=== PATIENT | male | born 1995 | race Caucasian/White ===

== ENCOUNTER 2018-02-04 02:53 | Inpatient (IN) | payer MEDICAID ==
[~2018-02-04] VITALS: Ht 162.6 cm; Wt 33.7 kg
[2018-02-04] VITALS (36 sets, daily range): BP systolic 69–123; BP diastolic 45–87
[~2018-02-04 02:53] MED LIST: BACL-141 PO; OXCA300T31 PO
[2018-02-04] MEDS ORDERED: SODIUM CHLORIDE 0.9% 1,000 ML IV ONE ×2 (03:02→05:17)
[2018-02-04] MEDS ORDERED: LORAZEPAM 2MG/ML CPJ ONE ×2 (03:14→13:31)
[2018-02-04] MEDS ORDERED: VANCOMYCIN 1 G PREMIX 200 ML IV ONE (03:15)
[2018-02-04] MEDS ORDERED: SODIUM CHLORIDE 0.9% 1000ML BAG (SEPSIS BOLUS) IV ONE ×2 (03:15→04:45)
[2018-02-04] MEDS ORDERED: LORAZEPAM 2MG/ML CPJ IM ONE (03:15)
[2018-02-04] MEDS ORDERED: ACETAMINOPHEN 650MG SUPP PR ONE (03:15)
[2018-02-04] MEDS ORDERED: CEFTRIAXONE 1 G PREMIX 50 ML IV ONE (03:15)
[2018-02-04] MEDS ORDERED: ALBUTEROL (0.083%) 2.5MG/3ML NEB HHN STA (04:32)
[2018-02-04] MEDS ORDERED: IPRATROPIUM BROMIDE (0.02%) 0.5MG/2.5ML NEB HHN STA (04:32)
[2018-02-04 04:36] LABS: HEMATOCRIT. 38.7 % (42.0-52.0); HEMOGLOBIN. 12.8 g/dL (14.0-18.0); MEAN CORPUSCULAR HEMOGLOBIN 28.1 pg (28.0-32.0); MEAN CORPUSCULAR VOLUME 85.3 fL (80.0-94.0); MEAN PLATELET VOLUME 9.7 fl (7.4-10.4); PLATELET 177 x1000/uL (130-400); RED BLOOD CELL COUNT 4.54 mill/uL (4.7-6.1); RED CELL DISTRIBUTION WIDTH 15.5 % (11.6-14.6)
[2018-02-04 04:44] LABS: INR 1.2; PROTHROMBIN TIME 12.4 sec (9.4-11.6)
[2018-02-04 04:50] LABS: CHLORIDE 114 mEq/L (98-107)
[2018-02-04 04:51] LABS: COLOR URINE AMBER (YELLOW); KETONES URINE NEGATIVE (NEGATIVE); LEUKOCYTE ESTERASE URINE TRACE (NEGATIVE); NITRITE URINE NEGATIVE (NEGATIVE); OCCULT BLOOD URINE NEGATIVE (NEGATIVE); PROTEIN URINE NEGATIVE (NEGATIVE); SPECIFIC GRAVITY URINE 1.027 (1.005-1.030); UROBILINOGEN URINE 0.2 E.U./dL (0.2-1.0)
[2018-02-04 04:54] LABS: AMMONIA 49 uMol/L (<32)
[2018-02-04 04:55] LABS: ETHANOL BLOOD < 10 mg/dL
[2018-02-04 04:57] LABS: CLARITY URINE SL HAZY (CLEAR)
[2018-02-04 04:59] LABS: CREATINE KINASE 409 IU/L (39-308)
[2018-02-04 05:08] LABS: CARBAMAZEPINE < 0.5 ug/mL (4-12); PHENOBARBITAL < 2.1 ug/mL (15.0-40.0); VALPROIC ACID < 3.0 ug/mL (50-100)
[2018-02-04] MEDS ORDERED: POTASSIUM BICARB/CIT ACID 25 MEQ TABLET.EFF PO NR (05:15)
[2018-02-04] MEDS ORDERED: LACTULOSE 20G/30ML UDC PO ONE (05:15)
[2018-02-04 05:17] LABS: *AMPHETAMINES SCREEN URINE NEGATIVE (NEGATIVE); *BARBITURATES SCREEN URINE NEGATIVE (NEGATIVE); *BENZODIAZEPINES SCREEN URINE PRESUMTIVE POSITIVE (NEGATIVE); *COCAINE SCREEN URINE NEGATIVE (NEGATIVE)
[2018-02-04 05:19] LABS: METHADONE URINE SCREEN NEGATIVE (NEGATIVE); OPIATES URINE SCREEN NEGATIVE (NEGATIVE)
[2018-02-04 05:20] LABS: CANNABINOID URINE SCREEN NEGATIVE (NEGATIVE); PHENCYCLIDINE URINE SCREEN NEGATIVE (NEGATIVE)
[2018-02-04 06:07] LABS: PLATELET ESTIMATE NORMAL
[2018-02-04] MEDS ORDERED: DOCUSATE SODIUM 100MG CAPSULE PO PRN (08:15)
[2018-02-04] MEDS ORDERED: NITROGLYCERIN 0.4MG TABLET SL SL PRN (08:15)
[2018-02-04] MEDS ORDERED: MAGNESIUM/ALUMINUM HYDROXIDE/SIMETHICONE 30ML UDC PO PRN (08:15)
[2018-02-04] MEDS ORDERED: HALOPERIDOL LACTATE 5MG/ML VIAL IM PRN (08:15)
[2018-02-04] MEDS ORDERED: GUAIFENESIN 200MG/10ML SUGAR FREE UDC PO PRN (08:15)
[2018-02-04] MEDS ORDERED: KETOROLAC 15MG/ML VIAL IV PRN (08:15)
[2018-02-04] MEDS ORDERED: CLONIDINE 0.1MG TABLET PO PRN (08:15)
[2018-02-04] MEDS ORDERED: LORAZEPAM 2MG/ML CPJ IV PRN (08:15)
[2018-02-04] MEDS ORDERED: IPRATROPIUM/ALBUTEROL 0.5-3(2.5)MG/3ML NEB INH PRN (08:15)
[2018-02-04] MEDS ORDERED: NOREPINEPHRINE 4 MG in DEXT 5% WATER 246 ML IV ONE ×5 (08:30→09:15)
[2018-02-04] MEDS ORDERED: FAMOTIDINE 20MG TABLET PO SCH (09:00)
[2018-02-04] MEDS ORDERED: FUROSEMIDE 40MG/4ML VIAL ONE (12:02)
[2018-02-04] MEDS ORDERED: PROPOFOL 10MG/ML 100ML 100 ML IV PRN (13:00)
[2018-02-04] MEDS ORDERED: IPRATROPIUM/ALBUTEROL 0.5-3(2.5)MG/3ML NEB HHN PRN (13:30)
[2018-02-04] MEDS ORDERED: SUCCINYLCHOLINE CHLORIDE 200MG/10ML VIAL IV ONE (14:57)
[2018-02-04] MEDS ORDERED: ETOMIDATE 2MG/ML 10ML VIAL IV ONE (14:57)
[2018-02-04] MEDS ORDERED: NA PHOS,M-B/NA PHOS,DI-BA ENEMA 118ML PR PRN (15:00)
[2018-02-04] MEDS ORDERED: PANTOPRAZOLE SODIUM 40 MG/VIAL IV SCH (15:00)
[2018-02-04] MEDS ORDERED: ALBUMIN HUMAN 25GM/100ML (25%) IV NR (15:00)
[2018-02-04] MEDS ORDERED: NOREPINEPHRINE 4 MG in DEXT 5% WATER 246 ML IV PRN (15:30)
[2018-02-04] MEDS ORDERED: PHENYLEPHRINE 10 MG in DEXT 5% WATER 249 ML IV PRN ×4 (15:30)
[2018-02-04] MEDS ORDERED: FUROSEMIDE 40MG/4ML VIAL IVP NR (15:30)
[2018-02-04 16:36] LABS: BG BASE EXCESS -0.7 mmol/L (-2.0-2.0); BG CARBOXYHEMOGLOBIN 0.3 % (0.5-1.5); BG DEOXYHEMOGLOBIN 0.8 % (0.0-5.0); BG FRACTION INSPIRED OXYGEN 100; BG HCO3 ACT 23.8 mmol/L (22.0-26.0); BG METHEMOGLOBIN 0.4 % (0.0-1.5); BG OXYGEN SATURATION 99.2 % (92.0-98.5); BG OXYHEMOGLOBIN 98.5 % (94.0-97.0); BG PH 7.403 (7.350-7.450); BG PO2 189.6 mmHg (75.0-100.0); BG SAMPLE SITE RIGHT RADIAL; BG TIDAL VOLUME(mL) 350 mL; BG TOTAL HEMOGLOBIN 15.5 g/dL (12.0-18.0); BG VENT MODE VENT - A/C; BG VENT RATE 14 set
[2018-02-04] MEDS ORDERED: VANCOMYCIN 1250MG in DEXTROSE 5% WATER 250ML IV NR (17:00)
[2018-02-04] MEDS ORDERED: LEVOFLOXACIN 500MG PREMIX 100 ML IV SCH (17:00)
[2018-02-04] MEDS ORDERED: PANTOPRAZOLE SODIUM 40 MG/VIAL IV ONE (17:12)
[2018-02-04] MEDS: PIPERACILLIN/TAZ 3.375G PREMIX 50 ML IV SCH ×2 (17:28→23:25)
[2018-02-04] MEDS: LEVETIRACETAM 500 MG in SODIUM CHLORIDE 0.9% 100 ML IV SCH (17:28)
[2018-02-04] MEDS: ACETAMINOPHEN 325MG TABLET PO PRN (17:50)
[2018-02-04] MEDS: BACLOFEN 20MG TABLET PO SCH (17:50)
[2018-02-04] MEDS: PANTOPRAZOLE 80 MG in SODIUM CHLORIDE 0.9% 100 ML IV SCH (17:52)
[2018-02-04] MEDS: NOREPINEPHRINE 4 MG in DEXT 5% WATER 246 ML IV PRN (18:48)
[2018-02-04 20:22] LABS: CREATINE KINASE MB FRACTION 4.1 ng/mL (0.5-3.6)
[2018-02-04] MEDS: OXCARBAZEPINE 300MG TABLET PO SCH (20:34)
[2018-02-04] MEDS ORDERED: ZOLPIDEM TARTRATE 5MG TABLET PO PRN (21:00)
[2018-02-04] MEDS: IPRATROPIUM/ALBUTEROL 0.5-3(2.5)MG/3ML NEB HHN SCH (21:24)
[2018-02-04] MEDS: VANCOMYCIN 750 MG PREMIX 150 ML IV SCH (23:25)
[2018-02-04] MEDS: KCL 20MEQ/100ML PREMIX 100 ML IV SCH (23:44)
[2018-02-05] VITALS (90 sets, daily range): BP systolic 52–133; BP diastolic 35–80
[2018-02-05] MEDS: IPRATROPIUM/ALBUTEROL 0.5-3(2.5)MG/3ML NEB HHN SCH ×4 (00:30→20:39)
[2018-02-05] MEDS: KCL 20MEQ/100ML PREMIX 100 ML IV SCH (02:06)
[2018-02-05] MEDS: PANTOPRAZOLE 80 MG in SODIUM CHLORIDE 0.9% 100 ML IV SCH ×2 (02:07→12:56)
[2018-02-05] MEDS: DIPHENHYDRAMINE 50MG/ML VIAL IV PRN ×2 (02:46→12:29)
[2018-02-05] MEDS: NOREPINEPHRINE 4 MG in DEXT 5% WATER 246 ML IV PRN ×3 (02:51→22:20)
[2018-02-05] MEDS ORDERED: CEFTRIAXONE 1 G PREMIX 50 ML IV SCH ×2 (03:00→18:00)
[2018-02-05] MEDS: LEVETIRACETAM 500 MG in SODIUM CHLORIDE 0.9% 100 ML IV SCH ×2 (06:06→18:08)
[2018-02-05 06:56] LABS: HEMATOCRIT. 40.3 % (42.0-52.0); HEMOGLOBIN. 13.5 g/dL (14.0-18.0); MEAN CORPUSCULAR VOLUME 83.4 fL (80.0-94.0); MEAN PLATELET VOLUME 9.5 fl (7.4-10.4); PLATELET 170 x1000/uL (130-400); RED BLOOD CELL COUNT 4.84 mill/uL (4.7-6.1); RED CELL DISTRIBUTION WIDTH 15.6 % (11.6-14.6)
[2018-02-05 06:57] LABS: CHLORIDE 106 mEq/L (98-107)
[2018-02-05 07:03] LABS: AMMONIA 25 uMol/L (<32)
[2018-02-05 07:06] LABS: T4 FREE 0.93 ng/dL (0.76-1.46)
[2018-02-05 07:17] LABS: CREATINE KINASE 1318 IU/L (39-308)
[2018-02-05] MEDS: PIPERACILLIN/TAZ 3.375G PREMIX 50 ML IV SCH ×2 (08:05→18:44)
[2018-02-05 08:38] LABS: BG BASE EXCESS 2.4 mmol/L (-2.0-2.0); BG CARBOXYHEMOGLOBIN 0.2 % (0.5-1.5); BG DEOXYHEMOGLOBIN 0.8 % (0.0-5.0); BG FRACTION INSPIRED OXYGEN 60; BG HCO3 ACT 25.6 mmol/L (22.0-26.0); BG METHEMOGLOBIN 0.3 % (0.0-1.5); BG OXYGEN SATURATION 99.2 % (92.0-98.5); BG OXYHEMOGLOBIN 98.7 % (94.0-97.0); BG PCO2 35.1 mmHg (35.0-45.0); BG PO2 202.3 mmHg (75.0-100.0); BG SAMPLE SITE RIGHT RADIAL; BG TIDAL VOLUME(mL) 350 mL; BG TOTAL HEMOGLOBIN 13.8 g/dL (12.0-18.0); BG VENT MODE VENT - A/C; BG VENT RATE 14 set
[2018-02-05] MEDS: VANCOMYCIN 750 MG PREMIX 150 ML IV SCH ×2 (08:40→16:41)
[2018-02-05] MEDS ORDERED: POTASSIUM CHLORIDE 20MEQ/PACKET PO SCH (09:00)
[2018-02-05] MEDS: BACLOFEN 20MG TABLET PO SCH ×2 (09:18→17:49)
[2018-02-05] MEDS: ACETAMINOPHEN 325MG TABLET PO PRN (09:18)
[2018-02-05] MEDS ORDERED: PROPOFOL 10MG/ML 100ML 100 ML IV PRN ×2 (09:48→16:00)
[2018-02-05] MEDS: OXCARBAZEPINE 300MG TABLET PO SCH ×2 (12:29→22:19)
[2018-02-05 12:45] LABS: PLATELET ESTIMATE NORMAL
[2018-02-05 15:32] LABS: HEMATOCRIT 39.8 % (42.0-52.0); HEMOGLOBIN 13.2 g/dL (14.0-18.0)
[2018-02-05] MEDS: LEVOFLOXACIN 500MG PREMIX 100 ML IV SCH (19:30)
[2018-02-06] VITALS (76 sets, daily range): BP systolic 82–125; BP diastolic 45–79
[2018-02-06] MEDS: PANTOPRAZOLE 80 MG in SODIUM CHLORIDE 0.9% 100 ML IV SCH ×3 (00:01→20:28)
[2018-02-06] MEDS: VANCOMYCIN 750 MG PREMIX 150 ML IV SCH (00:01)
[2018-02-06] MEDS: ACETAMINOPHEN 325MG TABLET PO PRN (01:00)
[2018-02-06] MEDS: PIPERACILLIN/TAZ 3.375G PREMIX 50 ML IV SCH ×3 (01:03→18:37)
[2018-02-06] MEDS: IPRATROPIUM/ALBUTEROL 0.5-3(2.5)MG/3ML NEB HHN SCH ×4 (02:20→20:12)
[2018-02-06] MEDS: LEVETIRACETAM 500 MG in SODIUM CHLORIDE 0.9% 100 ML IV SCH ×2 (05:08→17:21)
[2018-02-06 06:03] LABS: CHLORIDE 108 mEq/L (98-107)
[2018-02-06 06:38] LABS: BASOPHILS % 0.1 % (0.0-2.0); EOSINOPHILS % 1.3 % (0.0-5.0); HEMOGLOBIN. 11.5 g/dL (14.0-18.0); LYMPHOCYTES % 9.9 % (20.0-50.0); MEAN CORPUSCULAR HEMOGLOBIN 28.5 pg (28.0-32.0); MEAN CORPUSCULAR VOLUME 83.3 fL (80.0-94.0); MONOCYTES % 4.9 % (2.0-8.0); NEUTROPHILS % 83.8 % (40.0-76.0); PLATELET 146 x1000/uL (130-400); RED BLOOD CELL COUNT 4.04 mill/uL (4.7-6.1); RED CELL DISTRIBUTION WIDTH 15.4 % (11.6-14.6)
[2018-02-06 06:43] LABS: HEMATOCRIT. 33.7 % (42.0-52.0)
[2018-02-06 07:44] LABS: BG BASE EXCESS 1.8 mmol/L (-2.0-2.0); BG CARBOXYHEMOGLOBIN 0.3 % (0.5-1.5); BG DEOXYHEMOGLOBIN 0.8 % (0.0-5.0); BG FRACTION INSPIRED OXYGEN 60; BG HCO3 ACT 25.5 mmol/L (22.0-26.0); BG METHEMOGLOBIN 0.2 % (0.0-1.5); BG OXYGEN SATURATION 99.2 % (92.0-98.5); BG OXYHEMOGLOBIN 98.7 % (94.0-97.0); BG PCO2 36.7 mmHg (35.0-45.0); BG PH 7.459 (7.350-7.450); BG PO2 251.2 mmHg (75.0-100.0); BG SAMPLE SITE RIGHT RADIAL; BG TIDAL VOLUME(mL) 350 mL; BG TOTAL HEMOGLOBIN 12.1 g/dL (12.0-18.0); BG VENT MODE VENT - A/C; BG VENT RATE 14 set
[2018-02-06] MEDS: BACLOFEN 20MG TABLET PO SCH ×2 (09:25→17:21)
[2018-02-06] MEDS: OXCARBAZEPINE 300MG TABLET PO SCH ×2 (09:26→20:29)
[2018-02-06] MEDS: NOREPINEPHRINE 4 MG in DEXT 5% WATER 246 ML IV PRN ×2 (09:35→18:35)
[2018-02-06] MEDS ORDERED: POTASSIUM CHLORIDE 20MEQ/PACKET PO NR (10:00)
[2018-02-06] MEDS ORDERED: MAGNESIUM SULFATE 2 GM in DEXTROSE 5% WATER 50 ML IV NR (11:00)
[2018-02-06] MEDS: LEVOFLOXACIN 500MG PREMIX 100 ML IV SCH (19:04)
[2018-02-06] MEDS: VANCOMYCIN 500 MG PREMIX 100 ML IV SCH (20:29)
[2018-02-07] VITALS (82 sets, daily range): BP systolic 83–107; BP diastolic 35–78
[2018-02-07] MEDS: PIPERACILLIN/TAZ 3.375G PREMIX 50 ML IV SCH ×3 (01:07→17:47)
[2018-02-07] MEDS: IPRATROPIUM/ALBUTEROL 0.5-3(2.5)MG/3ML NEB HHN SCH ×4 (01:40→20:37)
[2018-02-07] MEDS: PANTOPRAZOLE 80 MG in SODIUM CHLORIDE 0.9% 100 ML IV SCH ×3 (04:18→17:46)
[2018-02-07] MEDS: LEVETIRACETAM 500 MG in SODIUM CHLORIDE 0.9% 100 ML IV SCH ×2 (04:18→17:05)
[2018-02-07] MEDS: NOREPINEPHRINE 4 MG in DEXT 5% WATER 246 ML IV PRN ×2 (04:19→22:13)
[2018-02-07 07:23] LABS: BG BASE EXCESS -0.9 mmol/L (-2.0-2.0); BG CARBOXYHEMOGLOBIN 0.3 % (0.5-1.5); BG DEOXYHEMOGLOBIN 0.9 % (0.0-5.0); BG FRACTION INSPIRED OXYGEN 45; BG HCO3 ACT 22.6 mmol/L (22.0-26.0); BG METHEMOGLOBIN 0.1 % (0.0-1.5); BG OXYGEN SATURATION 99.1 % (92.0-98.5); BG OXYHEMOGLOBIN 98.7 % (94.0-97.0); BG PCO2 33.8 mmHg (35.0-45.0); BG PH 7.443 (7.350-7.450); BG PO2 199.2 mmHg (75.0-100.0); BG PRESSURE SUPPORT 12; BG SAMPLE SITE RIGHT RADIAL; BG TIDAL VOLUME(mL) 350 mL; BG TOTAL HEMOGLOBIN 12.1 g/dL (12.0-18.0); BG VENT MODE VENT - SIMV; BG VENT RATE 8 set
[2018-02-07] MEDS: VANCOMYCIN 500 MG PREMIX 100 ML IV SCH ×2 (07:56→19:25)
[2018-02-07] MEDS: BACLOFEN 20MG TABLET PO SCH ×2 (08:02→17:05)
[2018-02-07] MEDS: OXCARBAZEPINE 300MG TABLET PO SCH ×2 (08:03→20:46)
[2018-02-07 11:17] LABS: BASOPHILS % 0.1 % (0.0-2.0); EOSINOPHILS % 1.1 % (0.0-5.0); HEMATOCRIT. 32.5 % (42.0-52.0); HEMOGLOBIN. 10.8 g/dL (14.0-18.0); LYMPHOCYTES % 12.2 % (20.0-50.0); MEAN CORPUSCULAR HEMOGLOBIN 28.1 pg (28.0-32.0); MEAN CORPUSCULAR VOLUME 84.3 fL (80.0-94.0); MEAN PLATELET VOLUME 9.8 fl (7.4-10.4); MONOCYTES % 6.1 % (2.0-8.0); NEUTROPHILS % 80.5 % (40.0-76.0); PLATELET 122 x1000/uL (130-400); RED BLOOD CELL COUNT 3.86 mill/uL (4.7-6.1); RED CELL DISTRIBUTION WIDTH 15.7 % (11.6-14.6)
[2018-02-07 11:24] LABS: CHLORIDE 111 mEq/L (98-107)
[2018-02-07 11:33] LABS: BG CARBOXYHEMOGLOBIN 0.3 % (0.5-1.5); BG CPAP (cmH2O) 0 cm(H2O); BG DEOXYHEMOGLOBIN 1.5 % (0.0-5.0); BG HCO3 ACT 24.6 mmol/L (22.0-26.0); BG METHEMOGLOBIN 0.4 % (0.0-1.5); BG OXYGEN SATURATION 98.5 % (92.0-98.5); BG OXYHEMOGLOBIN 97.8 % (94.0-97.0); BG PCO2 35.7 mmHg (35.0-45.0); BG PH 7.457 (7.350-7.450); BG SAMPLE SITE RIGHT BRACHIAL; BG TOTAL HEMOGLOBIN 11.5 g/dL (12.0-18.0); BG VENT MODE VENT - CPAP
[2018-02-07] MEDS ORDERED: POTASSIUM CHLORIDE 20MEQ/PACKET PO NR (12:30)
[2018-02-07] MEDS ORDERED: KCL 20MEQ/100ML PREMIX 100 ML IV NR (13:00)
[2018-02-07] MEDS: DIPHENHYDRAMINE 50MG/ML VIAL IV PRN (17:04)
[2018-02-07] MEDS: LEVOFLOXACIN 500MG PREMIX 100 ML IV SCH (17:47)
[2018-02-08] VITALS (84 sets, daily range): BP systolic 71–128; BP diastolic 34–80
[2018-02-08] MEDS: IPRATROPIUM/ALBUTEROL 0.5-3(2.5)MG/3ML NEB HHN SCH ×4 (01:58→19:55)
[2018-02-08] MEDS: PANTOPRAZOLE 80 MG in SODIUM CHLORIDE 0.9% 100 ML IV SCH ×3 (02:13→23:44)
[2018-02-08] MEDS: PIPERACILLIN/TAZ 3.375G PREMIX 50 ML IV SCH ×3 (02:13→17:34)
[2018-02-08] MEDS: LEVETIRACETAM 500 MG in SODIUM CHLORIDE 0.9% 100 ML IV SCH ×2 (05:03→17:34)
[2018-02-08 06:10] LABS: EOSINOPHILS % 1.4 % (0.0-5.0); HEMATOCRIT. 31.7 % (42.0-52.0); HEMOGLOBIN. 10.6 g/dL (14.0-18.0); LYMPHOCYTES % 12.1 % (20.0-50.0); MEAN CORPUSCULAR HEMOGLOBIN 28.4 pg (28.0-32.0); MEAN PLATELET VOLUME 10.1 fl (7.4-10.4); MONOCYTES % 8.2 % (2.0-8.0); NEUTROPHILS % 78.3 % (40.0-76.0); PLATELET 133 x1000/uL (130-400); RED BLOOD CELL COUNT 3.73 mill/uL (4.7-6.1); RED CELL DISTRIBUTION WIDTH 16.1 % (11.6-14.6)
[2018-02-08 06:24] LABS: CHLORIDE 109 mEq/L (98-107)
[2018-02-08] MEDS: ONDANSETRON HCL 4MG/2ML VIAL IV PRN (06:29)
[2018-02-08 06:33] LABS: PHOSPHORUS 3.1 mg/dL (2.5-4.9)
[2018-02-08] MEDS: BACLOFEN 20MG TABLET PO SCH ×2 (08:21→17:34)
[2018-02-08] MEDS: OXCARBAZEPINE 300MG TABLET PO SCH ×2 (08:22→20:30)
[2018-02-08] MEDS: VANCOMYCIN 500 MG PREMIX 100 ML IV SCH ×2 (08:22→22:15)
[2018-02-08] MEDS: ENOXAPARIN 30MG/0.3ML SYR SUBCUT SCH (15:21)
[2018-02-08] MEDS: ACETYLCYSTEINE 100MG/ML 10% VIAL 4ML INH SCH (16:10)
[2018-02-08] MEDS: LEVOFLOXACIN 500MG PREMIX 100 ML IV SCH (17:35)
[2018-02-08] MEDS: SIMETHICONE 80MG TABLET CHEW PO PRN (22:54)
[2018-02-09] VITALS (74 sets, daily range): BP systolic 76–144; BP diastolic 35–95
[2018-02-09] MEDS: PIPERACILLIN/TAZ 3.375G PREMIX 50 ML IV SCH ×3 (01:53→17:30)
[2018-02-09] MEDS: IPRATROPIUM/ALBUTEROL 0.5-3(2.5)MG/3ML NEB HHN SCH ×5 (01:54→20:29)
[2018-02-09] MEDS: ACETYLCYSTEINE 100MG/ML 10% VIAL 4ML INH SCH ×3 (02:00→16:09)
[2018-02-09] MEDS: LEVETIRACETAM 500 MG in SODIUM CHLORIDE 0.9% 100 ML IV SCH ×2 (04:10→17:30)
[2018-02-09 05:37] LABS: HEMATOCRIT 29.5 % (42.0-52.0); MEAN CORPUSCULAR HEMOGLOBIN 28.6 pg (28.0-32.0); MEAN CORPUSCULAR VOLUME 84.1 fL (80.0-94.0); PLATELET 102 x1000/uL (130-400); RED BLOOD CELL COUNT 3.51 mill/uL (4.7-6.1); RED CELL DISTRIBUTION WIDTH 15.7 % (11.6-14.6)
[2018-02-09 05:49] LABS: AMMONIA 36 uMol/L (<32)
[2018-02-09 05:55] LABS: CHLORIDE 105 mEq/L (98-107)
[2018-02-09] MEDS: PANTOPRAZOLE 80 MG in SODIUM CHLORIDE 0.9% 100 ML IV SCH (06:25)
[2018-02-09] MEDS: ONDANSETRON HCL 4MG/2ML VIAL IV PRN (06:44)
[2018-02-09] MEDS: VANCOMYCIN 500 MG PREMIX 100 ML IV SCH ×2 (08:02→20:00)
[2018-02-09] MEDS: BACLOFEN 20MG TABLET PO SCH ×2 (08:03→16:21)
[2018-02-09] MEDS: OXCARBAZEPINE 300MG TABLET PO SCH ×2 (08:03→21:01)
[2018-02-09] MEDS: SIMETHICONE 80MG TABLET CHEW PO PRN (08:55)
[2018-02-09] MEDS ORDERED: KCL 20MEQ/100ML PREMIX 100 ML IV NR (10:00)
[2018-02-09] MEDS: ENOXAPARIN 30MG/0.3ML SYR SUBCUT SCH (10:12)
[2018-02-09] MEDS ORDERED: RACEPINEPHRINE 2.25% 0.5ML NEB VIAL HHN PRN (11:00)
[2018-02-09] MEDS ORDERED: PANTOPRAZOLE SODIUM 40 MG/VIAL IV SCH (12:00)
[2018-02-09] MEDS: LEVOFLOXACIN 500MG PREMIX 100 ML IV SCH (17:30)
[2018-02-10] VITALS (41 sets, daily range): BP systolic 72–117; BP diastolic 26–72
[2018-02-10] MEDS: IPRATROPIUM/ALBUTEROL 0.5-3(2.5)MG/3ML NEB HHN SCH ×4 (01:45→20:35)
[2018-02-10] MEDS: ACETYLCYSTEINE 100MG/ML 10% VIAL 4ML INH SCH ×2 (01:45→07:27)
[2018-02-10] MEDS: PIPERACILLIN/TAZ 3.375G PREMIX 50 ML IV SCH ×3 (02:06→17:36)
[2018-02-10] MEDS: LEVETIRACETAM 500 MG in SODIUM CHLORIDE 0.9% 100 ML IV SCH ×2 (04:20→17:33)
[2018-02-10] MEDS: ACETAMINOPHEN 325MG TABLET PO PRN (06:10)
[2018-02-10] MEDS: VANCOMYCIN 500 MG PREMIX 100 ML IV SCH ×2 (08:39→20:01)
[2018-02-10] MEDS: ENOXAPARIN 30MG/0.3ML SYR SUBCUT SCH (09:37)
[2018-02-10] MEDS: OXCARBAZEPINE 300MG TABLET PO SCH (09:37)
[2018-02-10] MEDS: BACLOFEN 20MG TABLET PO SCH ×2 (09:37→17:33)
[2018-02-10] MEDS: PANTOPRAZOLE SODIUM 40 MG/VIAL IV SCH (09:37)
[2018-02-10] MEDS: DIPHENHYDRAMINE 50MG/ML VIAL IV PRN (17:33)
[2018-02-10] MEDS: LEVOFLOXACIN 500MG PREMIX 100 ML IV SCH (17:49)
[2018-02-10] MEDS ORDERED: OXCARBAZEPINE 300MG TABLET PO SCH (21:45)
[2018-02-11] VITALS (13 sets, daily range): BP systolic 88–115; BP diastolic 55–74
[2018-02-11] MEDS: OXCARBAZEPINE 300MG TABLET PO SCH ×3 (01:21→20:45)
[2018-02-11] MEDS: PIPERACILLIN/TAZ 3.375G PREMIX 50 ML IV SCH ×3 (01:59→19:12)
[2018-02-11] MEDS: IPRATROPIUM/ALBUTEROL 0.5-3(2.5)MG/3ML NEB HHN SCH ×4 (02:11→20:30)
[2018-02-11] MEDS: LEVETIRACETAM 500 MG in SODIUM CHLORIDE 0.9% 100 ML IV SCH ×2 (04:54→16:22)
[2018-02-11] MEDS: ACETYLCYSTEINE 100MG/ML 10% VIAL 4ML INH SCH (07:33)
[2018-02-11] MEDS: PANTOPRAZOLE SODIUM 40 MG/VIAL IV SCH (08:11)
[2018-02-11] MEDS: VANCOMYCIN 500 MG PREMIX 100 ML IV SCH ×2 (08:11→20:45)
[2018-02-11] MEDS: ENOXAPARIN 30MG/0.3ML SYR SUBCUT SCH (08:12)
[2018-02-11] MEDS: BACLOFEN 20MG TABLET PO SCH ×2 (09:16→16:22)
[2018-02-11] MEDS: LEVOFLOXACIN 500MG PREMIX 100 ML IV SCH (17:02)
[2018-02-11] MEDS: SIMETHICONE 80MG TABLET CHEW PO PRN (18:30)
[2018-02-12] VITALS (13 sets, daily range): BP systolic 92–131; BP diastolic 40–80
[2018-02-12] MEDS: ACETYLCYSTEINE 100MG/ML 10% VIAL 4ML INH SCH ×3 (01:25→17:11)
[2018-02-12] MEDS: IPRATROPIUM/ALBUTEROL 0.5-3(2.5)MG/3ML NEB HHN SCH ×4 (01:25→21:15)
[2018-02-12] MEDS: LEVETIRACETAM 500 MG in SODIUM CHLORIDE 0.9% 100 ML IV SCH (05:12)
[2018-02-12] MEDS: PANTOPRAZOLE SODIUM 40 MG/VIAL IV SCH (08:40)
[2018-02-12] MEDS: OXCARBAZEPINE 300MG TABLET PO SCH ×2 (08:40→21:10)
[2018-02-12] MEDS: ENOXAPARIN 30MG/0.3ML SYR SUBCUT SCH (08:42)
[2018-02-12] MEDS ORDERED: LORAZEPAM 2MG/ML CPJ IV PRN (09:00)
[2018-02-12] MEDS: BACLOFEN 20MG TABLET PO SCH ×2 (11:24→21:10)
[2018-02-12 14:12] LABS: BASOPHILS % 0.1 % (0.0-2.0); CHLORIDE 102 mEq/L (98-107); EOSINOPHILS % 1.3 % (0.0-5.0); HEMATOCRIT. 32.8 % (42.0-52.0); HEMOGLOBIN. 10.8 g/dL (14.0-18.0); LYMPHOCYTES % 25.3 % (20.0-50.0); MEAN CORPUSCULAR HEMOGLOBIN 28.2 pg (28.0-32.0); MEAN CORPUSCULAR VOLUME 85.7 fL (80.0-94.0); MONOCYTES % 12.7 % (2.0-8.0); NEUTROPHILS % 60.6 % (40.0-76.0); PLATELET 150 x1000/uL (130-400); RED BLOOD CELL COUNT 3.83 mill/uL (4.7-6.1); RED CELL DISTRIBUTION WIDTH 15.9 % (11.6-14.6)
[2018-02-12] MEDS: LEVETIRACETAM 750 MG in SODIUM CHLORIDE 0.9% 100 ML IV SCH (17:52)
[2018-02-13] VITALS (14 sets, daily range): BP systolic 82–154; BP diastolic 35–89
[2018-02-13] MEDS: ACETYLCYSTEINE 100MG/ML 10% VIAL 4ML INH SCH ×3 (01:32→14:30)
[2018-02-13] MEDS: IPRATROPIUM/ALBUTEROL 0.5-3(2.5)MG/3ML NEB HHN SCH ×4 (01:32→21:15)
[2018-02-13] MEDS: LEVETIRACETAM 750 MG in SODIUM CHLORIDE 0.9% 100 ML IV SCH (05:31)
[2018-02-13] MEDS: OXCARBAZEPINE 300MG TABLET PO SCH ×2 (08:50→21:04)
[2018-02-13] MEDS: BACLOFEN 20MG TABLET PO SCH ×2 (08:50→21:03)
[2018-02-13] MEDS: PANTOPRAZOLE SODIUM 40 MG/VIAL IV SCH (08:50)
[2018-02-13] MEDS: ENOXAPARIN 30MG/0.3ML SYR SUBCUT SCH (08:52)
[2018-02-13] MEDS ORDERED: ZONISAMIDE 100MG CAPSULE PO SCH (12:00)
[2018-02-13] MEDS ORDERED: OXCARBAZEPINE 300MG TABLET PO SCH (17:00)
[2018-02-13] MEDS: LAMOTRIGINE 25MG TABLET PO SCH (17:45)
[2018-02-13] MEDS: LEVETIRACETAM 1,000 MG in SODIUM CHLORIDE 0.9% 100 ML IV SCH (17:45)
[2018-02-14] VITALS (7 sets, daily range): BP systolic 96–148; BP diastolic 56–87
[2018-02-14] MEDS: IPRATROPIUM/ALBUTEROL 0.5-3(2.5)MG/3ML NEB HHN SCH ×4 (01:41→21:25)
[2018-02-14] MEDS: LEVETIRACETAM 1,000 MG in SODIUM CHLORIDE 0.9% 100 ML IV SCH ×2 (04:01→18:36)
[2018-02-14] MEDS: PANTOPRAZOLE SODIUM 40 MG/VIAL IV SCH (10:22)
[2018-02-14] MEDS: ENOXAPARIN 30MG/0.3ML SYR SUBCUT SCH (10:25)
[2018-02-14] MEDS: LAMOTRIGINE 25MG TABLET PO SCH ×2 (10:46→21:01)
[2018-02-14] MEDS: BACLOFEN 20MG TABLET PO SCH ×2 (10:46→21:01)
[2018-02-14] MEDS: OXCARBAZEPINE 300MG TABLET PO SCH ×2 (11:49→21:01)
[2018-02-15] VITALS: BP 102/59
[2018-02-15] MEDS: IPRATROPIUM/ALBUTEROL 0.5-3(2.5)MG/3ML NEB HHN SCH ×2 (01:39→08:47)
[2018-02-15 04:00] VITALS: BP 90/58
[2018-02-15] MEDS: LEVETIRACETAM 1,000 MG in SODIUM CHLORIDE 0.9% 100 ML IV SCH (04:42)
[2018-02-15 08:00] VITALS: BP 95/61
[2018-02-15] MEDS: BACLOFEN 20MG TABLET PO SCH (09:11)
[2018-02-15] MEDS: PANTOPRAZOLE SODIUM 40 MG/VIAL IV SCH (09:12)
[2018-02-15] MEDS: OXCARBAZEPINE 300MG TABLET PO SCH (09:12)
[2018-02-15] MEDS: LAMOTRIGINE 25MG TABLET PO SCH (09:12)
[2018-02-15] MEDS: ENOXAPARIN 30MG/0.3ML SYR SUBCUT SCH (09:16)
[2018-02-15 12:00] VITALS: BP 100/55
[2018-02-15 13:04] VITALS: BP 116/66
== END 2018-02-15 14:00 | disposition home or self-care (01) | DRG 720 ==
LOC: ER 02:56 → CVICU 05:08 → EDBEDREQ 05:21 → EDBEDREQTM 05:21 → EDBEDREQSVC 05:21 → ENRESERV 12:14 → 3WST 02-10 20:52 → 6EST 02-14 00:14
PROVIDERS: ADMIT Internal Medicine; ATTEND Internal Medicine
PROC: 5A1945Z Respiratory Ventilation, 24-96 Consecutive Hours (ICD-10-PCS; principal; 2018-02-04)
PROC: 0BH17EZ Insertion of Endotracheal Airway into Trachea, Via Natural or Artificial Opening (ICD-10-PCS; 2018-02-04)
PROC: 4A00X4Z Measurement of Central Nervous Electrical Activity, External Approach (ICD-10-PCS; 2018-02-04)
PROC: 02HV33Z Insertion of Infusion Device into Superior Vena Cava, Percutaneous Approach (ICD-10-PCS; 2018-02-04)
PROC: B548ZZA Ultrasonography of Superior Vena Cava, Guidance (ICD-10-PCS; 2018-02-04)
DX: A41.9 Sepsis, unspecified organism (principal); J96.00 Acute respiratory failure, unspecified whether with hypoxia or hypercapnia; J69.0 Pneumonitis due to inhalation of food and vomit; E43 Unspecified severe protein-calorie malnutrition; E72.20 Disorder of urea cycle metabolism, unspecified; K29.71 Gastritis, unspecified, with bleeding; E87.0 Hyperosmolality and hypernatremia; E03.9 Hypothyroidism, unspecified; E87.6 Hypokalemia; G40.909 Epilepsy, unspecified, not intractable, without status epilepticus; G80.9 Cerebral palsy, unspecified; D64.9 Anemia, unspecified; Z88.8 Allergy status to other drugs, medicaments and biological substances; Z79.899 Other long term (current) drug therapy; Q02 Microcephaly; Z68.1 Body mass index [BMI] 19.9 or less, adult
CPT/HCPCS: 31500; 36415; 36569; 36600; 51702; 70450; 70551; 71045; 76937; 80048; 80053; 80156; 80165; 80184; 80185; 80202; 80305; 80307; 80329; 81003; 82140; 82270; 82375; 82550; 82553; 82805; 83036; 83605; 83735; 84100; 84439; 84443; 84478; 84484; 85014; 85018; 85025; 85027; 85610; 87040; 87070; 87086; 92610; 93005; 94002; 94003; 94640; 94667; 96361; 96365; 96372; 97161; 99285; A6261; C1725; C9113; G0482; J0330; J0696; J1200; J1650; J1940; J1953; J1956; J2060; J2405; J2543; J2704; J3370; J3475; J3480; J3490; J7030; J7040; J7050; J7060; J7608; J7611; J7620; P9047; A4315